=== PATIENT | male | born 1995 | race African-American/Black ===

== ENCOUNTER 2018-01-19 08:24 | Emergency (ER) | payer SELFPAY ==
[2018-01-19] MEDS: AZITHROMYCIN 250 MG TABLET. PO (09:16)
[2018-01-19 09:17] LABS: BILIRUBIN,URINE SMALL (NEG); CLARITY,URINE CLEAR; COLOR,URINE YELLOW; GLUCOSE,URINE NEGATIVE (NEG); NITRITE,URINE NEGATIVE (NEG); PH,URINE 5.5; PROTEIN,URINE NEGATIVE (NEG-TRACE)
[2018-01-19] MEDS: cefTRIAXone IM 250 MG VIAL IM (09:17)
[2018-01-19 09:33] LABS: BACTERIA,URINE 0 /HPF (0-FEW); RBC,URINE 0 /HPF (0-2); SQUAMOUS EPITHELIAL CELL,UR FEW /LPF
== END 2018-01-19 10:18 | disposition home or self-care (01) ==
LOC: ER 08:24
DX: Z20.2 Contact with and (suspected) exposure to infections with a predominantly sexual mode of transmission (principal); J45.909 Unspecified asthma, uncomplicated; G47.30 Sleep apnea, unspecified; Z88.1 Allergy status to other antibiotic agents; Y08.89XA Assault by other specified means, initial encounter; Y93.89 Activity, other specified; Y92.89 Other specified places as the place of occurrence of the external cause; Y99.8 Other external cause status
CPT/HCPCS: 81001; 87252; 87491; 87591; 96372; 99284; J0696; Q0144